=== PATIENT | female | born 1975 | race Caucasian/White ===

== ENCOUNTER → 2018-02-08 | Outpatient (CLI) | payer BC, OTHER ==
[2018-02-08 12:46] LABS: BASO % 2.8 %; BASO ABS # 0.12 K/uL (0-0.2); EOS % 3.7 %; EOS ABS # 0.16 K/uL (0-0.5); HEMATOCRIT 35.4 % (37-47); HEMOGLOBIN 10.8 g/dL (12.0-16.0); IG# 0.01 K/uL (0.00-0.02); LYMPH % 40.8 %; LYMPH ABS # 1.75 K/uL (1.2-3.4); MEAN CELL VOLUME 81.9 fL (80-100); MEAN CORPUSCULAR HGB CONC 30.5 g/dl (32-36); MEAN PLATELET VOLUME 9.9 fL (7.4-10.4); MONO % 10.3 %; MONO ABS # 0.44 K/uL (0.11-0.59); NEUT % 42.2 %; NEUT ABS # 1.81 K/uL (1.4-6.5); PLATELET COUNT 359 K/uL (130-400); RED CELL DISTRIBUTION WIDTH CV 16.5 % (11.5-14.5); RED CELL DISTRIBUTION WIDTH SD 50.2 fL (36.4-46.3); WHITE BLOOD COUNT 4.29 K/uL (4.8-10.8)
[2018-02-08 13:27] LABS: ALBUMIN 3.7 gm/dl (3.4-5.0); ALT/SGPT 25 U/L (12-78); BLOOD UREA NITROGEN 20 mg/dl (7-18); CALCIUM 8.4 mg/dl (8.5-10.1); CARBON DIOXIDE 27 mmol/L (21-32); CHOLESTEROL 209 mg/dl (0-200); GLUCOSE 91 mg/dl (70-99); POTASSIUM 4.1 mmol/L (3.5-5.1); SODIUM 138 mmol/L (136-145)
[2018-02-08 13:37] LABS: ALKALINE PHOSPHATASE 61 U/L (45-117); AST/SGOT 16 U/L (15-37); LDL CHOLESTEROL CALCULATED 126 mg/dl; TOTAL PROTEIN 7.1 gm/dl (6.4-8.2)
== END | disposition home or self-care (01) ==
LOC: C.LABMFLN 17:57
PROVIDERS: ATTEND Family Medicine
DX: Z00.00 Encounter for general adult medical examination without abnormal findings (principal)

== ENCOUNTER → 2018-03-19 | Outpatient (CLI) | payer BC ==
[2018-03-19 13:03] LABS: BASO % 2.1 %; BASO ABS # 0.11 K/uL (0-0.2); EOS % 2.1 %; EOS ABS # 0.11 K/uL (0-0.5); HEMATOCRIT 40.5 % (37-47); HEMOGLOBIN 13.2 g/dL (12.0-16.0); IG# 0.01 K/uL (0.00-0.02); LYMPH % 43.8 %; LYMPH ABS # 2.28 K/uL (1.2-3.4); MEAN CELL VOLUME 84.4 fL (80-100); MEAN CORPUSCULAR HEMOGLOBIN 27.5 pg (25-34); MEAN CORPUSCULAR HGB CONC 32.6 g/dl (32-36); MEAN PLATELET VOLUME 9.9 fL (7.4-10.4); MONO % 9.4 %; MONO ABS # 0.49 K/uL (0.11-0.59); NEUT % 42.4 %; PLATELET COUNT 328 K/uL (130-400); RED CELL DISTRIBUTION WIDTH CV 18.8 % (11.5-14.5); RED CELL DISTRIBUTION WIDTH SD 58.3 fL (36.4-46.3)
[2018-03-19 13:42] LABS: TRANSFERRIN 256 mg/dl (200-360)
== END | disposition home or self-care (01) ==
LOC: C.LABMFLN 08:53
PROVIDERS: ATTEND Family Medicine
DX: D64.9 Anemia, unspecified (principal)